=== PATIENT | female | born 1930 | race Caucasian/White ===

== ENCOUNTER 2018-11-12 18:11 | Inpatient (IN) ==
[2018-11-12] MEDS ORDERED: Naloxone 0.4 MG/ML INJ IVP PRN (23:37)
[2018-11-12] MEDS ORDERED: 0.9 % Sodium Chloride 1,000 ML IVC SCH (23:45)
--- NOTE | 2018-11-13 00:07 | Internal Med History&Physical ---
Date of Encounter: 11/13/18 Time of Encounter: 22:15 Internal Medicine - H&P: HPI Chief complaint: Fall Admitted From: Hospital to Hospital Transfer Plans for Post Hospital Care: Home History of present illness: Ms. De Souza is a 88 year old female with past medical history significant for paroxysmal a fib, hypertension, hyperlipidemia, diverticulosis, chronic kidney diease, breast and skin cancer in remission who presents as hospital transfer from [facility] following mechanical fall while carrying groceries on outdoor steps (total of 3 stairs) at home taking her around twenty minutes to crawl inside to phone to call for help. Denies striking head or loss of consciousness. Complains of 6/10 pain to right lower extremity radiating around right hip into lower back and rib pain upon deep breathing. She is able to move right lower extremity but has been unable to bear weight on it since fall. Pain is improved with medication and exacerbated with movement. No headache, chest pain, shortness of breath, bowel or bladder changes. Sending facility obtained xray of right hip, CT of head, cervical spine, chest, abdomen/pelvis with possible subcapital right femoral neck fracture on xray needing MRI for further evaluation and anterior superior right sacrum fracture. CT of abdomen/pelvis also reported diverticulosis which is known and chronic for patient, no current symptoms of diverticulitis with normal bowel movement yesterday. Sending facility gave Climax which improved pain and fentanyl which made patient not like how it made her feel. Has history of paroxysmal a fib but has never taken any type of anticoagulation besides aspirin. Sending facility EKG reported as a fib. Patient remains very functional but lives alone at home and will likely need assistance/rehab on discharge. Past Med Surg Social Fam HX - Past Medical History Medical history: atrial fibrillation, cancer, hyperlipidemia, hypertension, renal disease, other Additional medical history: Breast CA with lumpectomy/radiation, melanoma, diverticulosis Psychiatric history: no psych history - Past Surgical History Surgical History: appendectomy, cancer surgery, cholecystectomy, hysterectomy Additional surgical history: achilles tendon operation, right side lumpectomy - Social History Smoking Status: Never smoker Smokeless Tobacco Status: No Alcohol use: none Drug use: none Internal Medicine - H&P: Meds RX: Aspirin 81 mg PO DAILY 09/22/15 [History] RX: Dronendrone [Multaq] 400 mg PO BID 09/22/15 [History] RX: Simvastatin [Zocor] 10 mg PO DAILY 09/22/15 [History] RX: Cholecalciferol (D-3) [Vitamin D] 1,000 unit PO DAILY 10/23/17 [History] RX: Magnesium Citrate [Citroma] 296 ml PO PRN PRN 10/23/17 [History] RX: Metoprolol XL (24 HR) Succ [Toprol Xl] 25 mg PO DAILY #30 tab.er.24h 10/25/17 [Rx] Allergy/AdvReac Type Severity Reaction Status Date / Time chlorpheniramine Allergy Hives Verified 06/14/16 13:20 diphenhydramine AdvReac Itching Verified 10/31/18 15:58 All Systems PM: A 10-system review of systems was performed and is negative for pertinent findings except as documented above in the HPI. - Constitutional Vitals: Temp Pulse Resp BP Pulse Ox 97.9 F 66 17 114/62 92 11/12/18 23:38 11/12/18 23:38 11/12/18 23:38 11/12/18 23:38 11/12/18 23:38 Exam: General: Alert and oriented. Skin:Normal color, no rash. Brusing noted to right side of head and right elbow. HEENT:Pupils equal, round and reactive. Cardiovascular:No rubs, murmurs or gallops. No JVD. Pulse irregular. Lungs:Normal breath sounds, no wheezes or crackles. Rib pain with deep breathing. Abdomen:Soft, non-tender, no rigidity. Extremities:No deformity, no edema, no joint swelling or clubbing. Tenderness to right lower extremity. Neurological:Normal cognition and motor skills. Pulses:Carotid and radial pulses normal +2. Rest of the physical exam is non contributory. - Assessment and plan (1) Fracture of femoral neck, right Current Visit: Yes Status: Acute Assessment and plan: Surgery consult ordered, will call in a.m. MRI ordered. NPO at midnight. Will need PT after seeing ortho. fiscal services director consulted for discharge arrangements. Pain control with PRN pain medications. Qualifiers: Encounter type: initial encounter Fracture type: closed Qualified Code(s): S72.001A - Fracture of unspecified part of neck of right femur, initial encounter for closed fracture (2) Fracture of sacrum Current Visit: Yes Status: Acute Assessment and plan: Plan as above. Qualifiers: Encounter type: initial encounter Zone of sacrum fracture: unspecified portion of sacrum Fracture type: closed Qualified Code(s): S32.10XA - Unspecified fracture of sacrum, initial encounter for closed fracture (3) Fall Current Visit: Yes Status: Acute Assessment and plan: Plan as above. Qualifiers: Encounter type: initial encounter Qualified Code(s): W19.XXXA - Unspecified fall, initial encounter (4) Chronic kidney disease Current Visit: Yes Status: Chronic Assessment and plan: Currently at baseline. Monitor renal function closely. Repeat labs in a.m. Qualifiers: Chronic kidney disease stage: unspecified stage Qualified Code(s): N18.9 - Chronic kidney disease, unspecified (5) Hypertension Current Visit: Yes Status: Chronic Assessment and plan: Continue home medications once verified. Qualifiers: Hypertension type: unspecified Qualified Code(s): I10 - Essential (primary) hypertension (6) Atrial fibrillation Current Visit: Yes Status: Chronic Assessment and plan: Continue home medications once verified. Qualifiers: Atrial fibrillation type: chronic Qualified Code(s): I48.2 - Chronic atrial fibrillation - Time Spent With Patient Total time spent is greater than 50% in coordination of care (as documented) at patient's floor/unit and/or counseling patient:
[2018-11-13] MEDS: *HR* HYDROcodone/Acet 5/325 mg TABLET PO PRN ×2 (00:32→08:08)
[2018-11-13] MEDS ORDERED: Acetaminophen IV 500 MG/50 ML INFUS..BTL IVPB ONE (03:57)
[2018-11-13 08:02] LABS: Basophils % 0.6 %; Eosinophils # 0.2 K/mcL (0.0-0.6); Eosinophils % 4.5 %; Hematocrit 34.7 % (35.3-44.9); Hemoglobin 11.5 g/dL (11.5-15.4); Immature Granulocytes % 0.4 % (0-4); Lymphocytes # 1.3 K/mcL (0.6-4.6); Lymphocytes % 26.8 %; Mean Corpuscular HGB Conc 33.1 g/dL (31.6-35.5); Mean Corpuscular Hemoglobin 32.5 pg (28.0-33.3); Mean Platelet Volume 9.2 fL (9.4-12.4); Monocytes # 0.5 K/mcL (0.0-1.3); Monocytes % 9.8 %; Neutrophils # 2.8 K/mcL (1.6-8.9); Platelet Count 119 K/mcL (140-400); Red Blood Count 3.54 M/mcL (3.82-4.97); Segmented Neutrophils % 57.9 %
[2018-11-13 08:19] LABS: BUN/Creatinine Ratio 21 (6-26); Blood Urea Nitrogen 19 mg/dL (8-23); Calcium 8.5 mg/dL (8.6-10.3); Carbon Dioxide 22 mEq/L (23-29); Chloride 108 mEq/L (98-107); Glucose 128 mg/dL (70-105); Osmolality,Calculated 284 (280-300); Potassium 4.2 mEq/L (3.5-5.1); Sodium 135 mEq/L (136-145); eGFR For Non-African Americans 58 (> 60)
[2018-11-13] MEDS ORDERED: Metoprolol XL (24 HR) Succ 25 MG TAB.ER.24H PO SCH (10:45)
[2018-11-13] MEDS ORDERED: *HR* FentaNYL (PF) 100 MCG/2 ML VIAL ONE ×2 (12:33→14:27)
[2018-11-13] MEDS ORDERED: Dexamethasone 4 MG/ML VIAL ONE (12:33)
[2018-11-13] MEDS ORDERED: Ondansetron 4 MG/2 ML VIAL ONE (12:33)
[2018-11-13] MEDS ORDERED: Lidocaine -MPF 2% 2 ML VIAL ONE (12:33)
[2018-11-13] MEDS ORDERED: *HR* Propofol 200 MG/20 ML VIAL IVP ONE (12:33)
--- NOTE | 2018-11-13 12:34 | Anesthesia Evaluation PreOp ---
Date of Encounter: 11/13/18 Time of Encounter: 13:33 - Past History Planned Operation: Right Hip Pinning Cardiac History: HTN, Hyperlipidemia, Arrhythmia (paroxysmal A-Fib) Pulmonary History: Denies Any Significant HX CARDIAC CATH LAB MANAGER History: Denies Any Significant HX Other Medical History: Renal (CKD), Other (H/O breast CA S/P lumpectomy/XRT) Anesthesia History: No Prior Anesthetic Complications, Past Anesthesia Alcohol Use: none Drug use: none Medications and Allergies Aspirin 81 mg PO DAILY 09/22/15 [History] Dronendrone [Multaq] 400 mg PO BID 09/22/15 [History] Simvastatin [Zocor] 10 mg PO DAILY 09/22/15 [History] Cholecalciferol (D-3) [Vitamin D] 1,000 unit PO DAILY 10/23/17 [History] Magnesium Citrate [Citroma] 296 ml PO PRN PRN 10/23/17 [History] Metoprolol XL (24 HR) Succ [Toprol Xl] 25 mg PO DAILY #30 tab.er.24h 10/25/17 [Rx] Allergy/AdvReac Type Severity Reaction Status Date / Time chlorpheniramine Allergy Hives Verified 06/14/16 13:20 diphenhydramine AdvReac Itching Verified 10/31/18 15:58 - Meds/Allergy Pre-op Review Medications Reviewed: Yes Allergies Reviewed: Yes Beta Blockers on Current Med List: Yes If Beta Blockers taken, Date/Time (Last Dose taken): 11/13/2018 at 1109 Anesthesia Results - Labs 11/13/18 07:14 11/13/18 07:14 - Imaging EKG: report reviewed (10/31/2018 Atrial fibrillation with rapid ventricular response Baseline wander in lead(s) V1) Anesthesia Exam Vital Signs/O2 Sat, Most Current Temp Pulse Resp BP Pulse Ox 98.5 F 62 14 127/69 92 11/13/18 10:22 11/13/18 10:22 11/13/18 10:22 11/13/18 10:22 11/13/18 10:22 Height: 5'3''/1.6m Weight: 131 lbs/59.8 kg NPO (# of Hours): 8 Pain Scale: 0 (at rest) Pain Scale Used: Numeric (1 - 10) - HEENT Pupil (Motor): EOMI Mallampati: III Teeth: Normal Oral Opening: Greater than 3 - CARDIAC CATH LAB MANAGER LOC: Oriented CARDIAC CATH LAB MANAGER Motor: Normal RUE, Normal LUE, Normal RLE, Normal LLE, Normal Face CARDIAC CATH LAB MANAGER Sensory: Normal: RUE, LUE, RLE, LLE, Face - Cardiac Rhythm: Irregular Murmur: None - Pulmonary Breath Sounds: bilateral Clear Respiratory Effort: Symmetrical Anesthesia Assess/Plan ASA Score: 3 Level of consciousness: Cooperative, Oriented, Tranquil Anesthetic Plan: General Monitoring Plan: Standard Monitors Recovery Plan: PACU
--- NOTE | 2018-11-13 12:39 | Orthopedic Consult Note ---
Date of Encounter: 11/13/18 Time of Encounter: 11:45 Assessment and Plan (1) Fracture of femoral neck, right Current Visit: Yes Status: Acute Right femoral neck fracture will require surgical intervention as discussed with Dr. Nielsen. Plan for right hip pinning today by Dr. Nielsen. I reviewed the procedure as well as the r/b/a with her and family and she expressed understanding. All questions were answered and consent was obtained and placed in chart. Continue NPO until surgery. NWB. Pain control per primary team. Will follow up with Kelsi Olguin PA-C in [facility] office on 11/27/17 at 1:30pm. Qualifiers: Encounter type: initial encounter Fracture type: closed Qualified Code(s ): S72.001A - Fracture of unspecified part of neck of right femur, initial encounter for closed fracture History of Present Illness Chief complaint: right hip pain HPI: Ms. De Souza is a 88 year old female who presented to the ER with right hip pain after a fall yesterday around 12:00. She slipped on the stairs going into her house while carrying groceries and fell down 3-5 stairs landing on her right side. She had instant pain in right hip and unable to bear weight to RLE. She proceeded to crawl inside to call for help. Pain currently well controlled with medication. Denies any numbness or tingling. She denies loss of consciousness but does have a bruise to right eyebrow and right elbow likely from crawling for help. No pain to these but states she does have some sternal soreness. Denies any chest pain, SOB, fevers. Normally she ambulates very well without assistance and lives at home alone. Past Med Surg Social Fam HX - Past Medical History Medical history: atrial fibrillation, cancer, hyperlipidemia, hypertension, renal disease, other Additional medical history: Breast CA with lumpectomy/radiation, melanoma, diverticulosis Psychiatric history: no psych history - Past Surgical History Surgical History: appendectomy, cancer surgery, cholecystectomy, hysterectomy Additional surgical history: achilles tendon operation, right side lumpectomy - Social History Smoking Status: Never smoker Smokeless Tobacco Status: No Alcohol use: none Drug use: none Medications and Allergies Aspirin 81 mg PO DAILY 09/22/15 [History] Dronendrone [Multaq] 400 mg PO BID 11/09/15 [History] Simvastatin [Zocor] 10 mg PO DAILY 09/22/15 [History] Cholecalciferol (D-3) [Vitamin D] 1,000 unit PO DAILY 10/23/17 [History] Magnesium Citrate [Citroma] 296 ml PO PRN PRN 10/23/17 [History] Metoprolol XL (24 HR) Succ [Toprol Xl] 25 mg PO DAILY #30 tab.er.24h 10/25/17 [Rx] Allergy/AdvReac Type Severity Reaction Status Date / Time chlorpheniramine Allergy Hives Verified 06/14/16 13:20 diphenhydramine AdvReac Itching Verified 10/31/18 15:58 All Systems Reviewed: The remainder of the systems were reviewed and are negative - Constitutional Constitutional: as per HPI - Cardiovascular Cardiovascular: as per HPI - Respiratory Respiratory: as per HPI - Musculoskeletal Musculoskeletal: as per HPI Physical Exam - Constitutional Vitals: Temp Pulse Resp BP Pulse Ox 98.5 F 62 14 127/69 92 11/13/18 10:22 11/13/18 10:22 11/13/18 10:22 11/13/18 10:22 11/13/18 10:22 - Elbow right Location of pain elbow: no pain (Moderate acchymosis noted to right elbow, no tenderness to palpation of elbow, full ROM. NV intact distally) - Hip right Tenderness with palpation: none (No ecchymosis, erythema or open wounds noted to the right hip, no tenderness to palpation of the right hip. ROM restricted secondary to known fracture. good dorsiflexion of foot, sensation intact distally. no calf tenderness to palpation.) Results - Labs Result Diagrams: 11/13/18 07:14 11/13/18 07:14 Labs: Abnormal lab results RBC 3.54 M/mcL (3.82-4.97) L 11/13/18 07:14 Hct 34.7 % (35.3-44.9) L 11/13/18 07:14 Plt Count 119 K/mcL (140-400) L 11/13/18 07:14 MPV 9.2 fL (9.4-12.4) L 11/13/18 07:14 Sodium 135 mEq/L (136-145) L 11/13/18 07:14 Chloride 108 mEq/L (98-107) H 11/13/18 07:14 Carbon Dioxide 22 mEq/L (23-29) L 11/13/18 07:14 Est GFR (Non-Af Amer) 58 (> 60) L 11/13/18 07:14 Glucose 128 mg/dL (70-105) H 11/13/18 07:14 Calcium 8.5 mg/dL (8.6-10.3) L 11/13/18 07:14 H & H 11/13/18 Range/Units 07:14 Hgb 11.5 D (11.5-15.4) g/dL Hct 34.7 L (35.3-44.9) % All other labs normal. - Diagnostic results Hip x-ray: report reviewed, image reviewed Consult Discharge Plan - Plan Referrals: Shan Tyler DO [Primary Care Provider] - - Attending Attestation Case and plan of care discussed with supervising physician who was available for all aspects of care.
--- NOTE | 2018-11-13 13:27 | Internal Med Progress Note ---
Hospitalist Progress Note - Encounter Date of Encounter: 11/13/18 Time of Encounter: 13:25 - Subjective Interval History: Patient says that her pain is well controlled. She denies any new chest pain, shortness of breath, palpitations.. - Exam Vitals: Temp Pulse Resp BP Pulse Ox 98.5 F 62 14 127/69 92 11/13/18 10:22 11/13/18 10:22 11/13/18 10:22 11/13/18 10:22 11/13/18 10:22 Exam: Cardiovascular:No rubs, murmurs or gallops. No JVD. Pulse irregular. Lungs:Normal breath sounds, no wheezes or crackles. Rib pain with deep breathing. Abdomen:Soft, non-tender, no rigidity. Extremities: Tenderness to palpation over the right greater trochanter. Neurological:Normal cognition and motor skills. Gait not assessed due to obvious reasons Pulses:Carotid and radial pulses normal +2. Rest of the physical exam is non contributory. - Assessment and Plan (1) Fracture of femoral neck, right Current Visit: Yes Status: Acute Assessment and Plan: Surgery consult ordered, will call in a.m. MRI ordered. NPO at midnight. Will need PT after seeing ortho. deputy sheriff court services consulted for discharge arrangements. Pain control with PRN pain medications. 11/13-orthopedic surgery consult appreciated. Patient to be taken for surgery for pinning. Anesthesia evaluation has already been completed. Surgery later on today. Pain control is appropriate. Patient will get metoprolol plaque to the surgery. She is already on baby aspirin and not on a blood thinner for her atrial fibrillation. She is an acceptable risk for her orthopedic surgery from a cardiac standpoint (2) Fracture of sacrum Current Visit: Yes Status: Acute Assessment and Plan: Management as per orthopedics. Most likely nonoperative with pain control (3) Fall Current Visit: Yes Status: Acute Assessment and Plan: Plan as above. Will need placement postoperatively (4) Chronic kidney disease Current Visit: Yes Status: Chronic Assessment and Plan: Currently at baseline. Monitor renal function closely. We will check BNP tomorrow (5) Hypertension Current Visit: Yes Status: Chronic Assessment and Plan: Stable. Continue to monitor (6) Atrial fibrillation Current Visit: Yes Status: Chronic Assessment and Plan: Rate controlled. Continue beta blockers perioperatively. Continue aspirin baby. DVT Prophylaxis: SCD - Time Spent with Patient Total time spent is greater than 50% in coordination of care (as documented) at patient's floor/unit and/or counseling patient: 25 - 35 minutes Plan of Care Discussed with: family Internal Medicine: Result - Labs CBC & Chem 7: 11/13/18 07:14 11/13/18 07:14 Labs: Short CBC 11/13/18 Range/Units 07:14 WBC 4.9 (4.3-11.1) K/mcL Hgb 11.5 D (11.5-15.4) g/dL Hct 34.7 L (35.3-44.9) % Plt Count 119 L (140-400) K/mcL Neutrophils # 2.8 (1.6-8.9) K/mcL BMP 11/13/18 07:14 Sodium 135 L Potassium 4.2 Chloride 108 H Carbon Dioxide 22 L BUN 19 Creatinine 0.92 Glucose 128 H Calcium 8.5 L Consult Discharge Plan - Plan Referrals: Shan Tyler DO [Primary Care Provider] - (1) Fracture of femoral neck, right Qualifiers: Encounter type: initial encounter Fracture type: closed Qualified Code(s): S72.001A - Fracture of unspecified part of neck of right femur, initial encounter for closed fracture (2) Fracture of sacrum Qualifiers: Encounter type: initial encounter Zone of sacrum fracture: unspecified portion of sacrum Fracture type: closed Qualified Code(s): S32.10XA - Unspecified fracture of sacrum, initial encounter for closed fracture (3) Fall Qualifiers: Encounter type: initial encounter Qualified Code(s): W19.XXXA - Unspecified fall, initial encounter (4) Chronic kidney disease Qualifiers: Chronic kidney disease stage: unspecified stage Qualified Code(s): N18.9 - Chronic kidney disease, unspecified (5) Hypertension Qualifiers: Hypertension type: unspecified Qualified Code(s): I10 - Essential (primary) h ypertension (6) Atrial fibrillation Qualifiers: Atrial fibrillation type: chronic Qualified Code(s): I48.2 - Chronic atrial fibrillation
[2018-11-13] MEDS ORDERED: ceFAZolin 2,000 MG in Water for inj. (sterile) 20 ML 20 ML IVP ONE (13:51)
[2018-11-13] MEDS ORDERED: EPHEDrine 50 MG/ML VIAL ONE (14:03)
[2018-11-13] MEDS ORDERED: *HR* Morphine 2 MG/ML SYRINGE IVP PRN (14:40)
--- NOTE | 2018-11-13 15:24 | Operative Note ---
Date of procedure: 11/13/18 Pre-op diagnosis: Right hip nondisplaced femoral neck fracture Post-op diagnosis: same Procedure: Right hip femoral neck fracture pinning Implants: [place] 6.5 mm cannulated Asnis screws Anesthesia: GETA Surgeon: Gianfranco Nielsen Was there an telecom assistant present: No Estimated blood loss (cc): 10 Specimen: 0 Condition: stable Disposition: PACU Procedure in Detail: The patient received IV antibiotics in the holding area, she was brought to the operating room, a sign in was performed, and she underwent general anesthesia on the hospital bed. The patient was then transferred to the OR fracture table in supine position. The patient was positioned against the groin post, with traction applied to the right lower extremity. The contralateral lower extremity was then placed onto a well-padded leg barton keeping her hip flexed and abducted. Once the patient was well positioned, the x-ray C-arm was brought in and fluoroscopy shots of the hip were taken, adjusting the lower extremity, making sure we will get a good AP and lateral views. Live fluoroscopy was also checked with the hip show it was stable in the valgus impacted position. The right hip and thigh down to the knee was then prepped and draped in standard technique. A timeout was performed. The guidewire was placed over the hip and it's position was checked under fluoroscopy. The guidewires in place percutaneously through skin and driven from the lateral cortex paralleling the inferior neck and staying central on the AP plane. This was driven up to the head, its position checked on AP and lateral views. A 3 cm longitudinal incisions then made going superior to the guidewire. The depth was measured, next I overdrilled the guidewire and placed the appropriate length screw with short threads. Another guidewire was then placed superior,steps were repeated to place another screw. The initial screw was changed out as it appeared too close to the articular surface of the head. The screw started sinking into the cortex. It was removed and replaced with a long threaded screw with a washer. Final AP and lateral shots were taken and saved, showing good screw placement. The wound was irrigated normal saline, the subcutaneous tissues closed with 2-0 Vicryl sutures, and skin stapled. Sterile dressings were applied. The patient was then transferred to hospital bed where she was extubated and taken to the recovery room in stable condition.
--- NOTE | 2018-11-13 15:29 | Anesthesia Evaluation Post Op ---
Date of Encounter: 11/13/18 Time of Encounter: 15:28 - Vital Signs Vital Signs: Vital Signs/O2 Sat, Most Current Temp Pulse Resp BP Pulse Ox 98.2 F 69 16 178/75 94 11/13/18 15:18 11/13/18 15:18 11/13/18 15:18 11/13/18 15:18 11/13/18 15:18 - Lungs Lungs: Clear Ascult./Percussion - Airway Airway: Non-obstructed - Cardiovascular Regular Rate - Mental Status Mental Status: Alert & Oriented, Answers Appropriately - Pain Pain Scale used: Numeric (1 - 10) (tolerable) - Nausea Vomiting Nausea Vomiting: Not Present - Hydration Hydration: Ice chips - Discharge PostOp Status: Transfer Patient to floor
[2018-11-13] MEDS ORDERED: *HR* HYDROcodone/Acet 5/325 mg TABLET PO PRN (16:03)
[2018-11-13] MEDS ORDERED: Ringers Solution, Lactated 1,000 ML IVC SCH (16:03)
[2018-11-13] MEDS ORDERED: Naloxone 0.4 MG/ML INJ IVP PRN (16:03)
[2018-11-13] MEDS ORDERED: Acetaminophen 325 MG TABLET PO PRN (16:03)
[2018-11-13 17:18] LABS: BUN/Creatinine Ratio 15 (6-26); Blood Urea Nitrogen 14 mg/dL (8-23); Calcium 8.7 mg/dL (8.6-10.3); Carbon Dioxide 21 mEq/L (23-29); Chloride 105 mEq/L (98-107); Glucose 164 mg/dL (70-105); Osmolality,Calculated 284 (280-300); Potassium 4.1 mEq/L (3.5-5.1); Sodium 135 mEq/L (136-145); eGFR For Non-African Americans 58 (> 60)
[2018-11-14 07:11] LABS: Hematocrit 33.4 % (35.3-44.9); Hemoglobin 11.4 g/dL (11.5-15.4)
[2018-11-14] MEDS: Metoprolol XL (24 HR) Succ 25 MG TAB.ER.24H PO SCH (08:45)
[2018-11-14] MEDS: Cholecalciferol (D-3) 1,000 UNIT TABLET PO SCH (08:45)
[2018-11-14] MEDS: Aspirin 81 MG TAB.CHEW PO SCH (08:45)
[2018-11-14] MEDS: *HR* Enoxaparin 30 MG/0.3 ML SYRINGE SQ SCH ×2 (10:52→19:57)
--- NOTE | 2018-11-14 12:41 | Internal Med Progress Note ---
Hospitalist Progress Note - Encounter Date of Encounter: 11/14/18 Time of Encounter: 12:39 - Subjective Interval History: Patient is doing better today postoperatively. She is still sore on the right side but that is expected after her surgery. The nursing staff she was a little bit confused early in the morning but at the time my examination she is a and O 3 - Exam Vitals: Temp Pulse Resp BP Pulse Ox 97.7 F 66 18 148/73 94 11/14/18 11:03 11/14/18 11:03 11/14/18 11:03 11/14/18 11:03 11/14/18 11:03 Exam: Cardiovascular:No rubs, murmurs or gallops. No JVD. Pulse irregular. Lungs:Normal breath sounds, no wheezes or crackles. Rib pain with deep br eathing. Abdomen:Soft, non-tender, no rigidity. Extremities: Postoperative bandage in place on the right lower extremity Neurological:Normal cognition and motor skills. Gait not assessed due to obvio us reasons Pulses:Carotid and radial pulses normal +2. Rest of the physical exam is non contributory. - Assessment and Plan (1) Fracture of femoral neck, right Current Visit: Yes Status: Acute Assessment and Plan: Surgery consult ordered, will call in a.m. MRI ordered. NPO at midnight. Will need PT after seeing ortho. application services manager consulted for discharge arrangements. Pain control with PRN pain medications. 11/13-orthopedic surgery consult appreciated. Patient to be taken for surgery for pinning. Anesthesia evaluation has already been completed. Surgery later on today. Pain control is appropriate. Patient will get metoprolol plaque to the surgery. She is already on baby aspirin and not on a blood thinner for her atrial fibrillation. She is an acceptable risk for her orthopedic surgery from a cardiac standpoint 11/14/18-status post pinning on the right femoral neck postop day #1. Tolerating pain well. Further planning on postoperative care as per orthopedic surgery. Eventually would need placement to rehabilitation (2) Fracture of sacrum Current Visit: Yes Status: Acute Assessment and Plan: Pain control. On the very management (3) Fall Current Visit: Yes Status: Acute (4) Chronic kidney disease Current Visit: Yes Status: Chronic Assessment and Plan: Currently at baseline. Monitor renal function closely. Check serial Bmp (5) Hypertension Current Visit: Yes Status: Chronic (6) Atrial fibrillation Current Visit: Yes Status: Chronic Assessment and Plan: Rate controlled. Continue beta blockers perioperatively. Continue baby aspirin DVT Prophylaxis: SCD - Time Spent with Patient Total time spent is greater than 50% in coordination of care (as documented) at patient's floor/unit and/or counseling patient: 25 - 35 minutes Plan of Care Discussed with: family Internal Medicine: Result - Labs CBC & Chem 7: 11/14/18 06:19 11/13/18 16:03 Labs: Short CBC 11/14/18 Range/Units 06:19 Hgb 11.4 L (11.5-15.4) g/dL Hct 33.4 L (35.3-44.9) % BMP 11/13/18 16:03 Sodium 135 L Potassium 4.1 Chloride 105 Carbon Dioxide 21 L BUN 14 Creatinine 0.92 Glucose 164 H Calcium 8.7 - Impressions Impressions Fluoroscopy 11/13/18 14:15 IMPRESSION: Fluoroscopic imaging obtained intraoperatively for right hip pinning. Please see performing physician note for full detail. D/ / 11/13/2018 15:24:10 Rajinder Rollins MD / [facility] Interpreting Provider: Rajinder Rollins MD Hip X-Ray 11/13/18 14:15 IMPRESSION: Fluoroscopic imaging obtained intraoperatively for right hip pinning. Please see performing physician note for full detail. D/ / 11/13/2018 15:24:10 Rajinder Rollins MD / dayana Interpreting Provider: Rajinder Rollins MD Consult Discharge Plan - Plan Referrals: Shan Tyler DO [Primary Care Provider] - (1) Fracture of femoral neck, right Qualifiers: Encounter type: initial encounter Fracture type: closed Qualified Code(s): S72.001A - Fracture of unspecified part of neck of right femur, initial encounter for closed fracture (2) Fracture of sacrum Qualifiers: Encounter type: initial encounter Zone of sacrum fracture: unspecified portion of sacrum Fracture type: closed Qualified Code(s): S32.10XA - Unspecified fracture of sacrum, initial encounter for closed fracture (3) Fall Qualifiers: Encounter type: initial encounter Qualified Code(s): W19.XXXA - Unspecified fall, initial encounter (4) Chronic kidney disease Qualifiers: Chronic kidney disease stage: unspecified stage Qualified Code(s): N18.9 - Chronic kidney disease, unspecified (5) Hypertension Qualifiers: Hypertension type: unspecified Qualified Code(s): I10 - Essential (primary) hypertension (6) Atrial fibrillation Qualifiers: Atrial fibrillation type: chronic Qualified Code(s): I48.2 - Chronic atrial fibrillation
[2018-11-14 12:59] LABS: BUN/Creatinine Ratio 16 (6-26); Blood Urea Nitrogen 13 mg/dL (8-23); Calcium 9.2 mg/dL (8.6-10.3); Carbon Dioxide 23 mEq/L (23-29); Chloride 106 mEq/L (98-107); Glucose 144 mg/dL (70-105); Osmolality,Calculated 291 (280-300); Potassium 4.2 mEq/L (3.5-5.1); Sodium 139 mEq/L (136-145); eGFR For Non-African Americans > 60 (> 60)
--- NOTE | 2018-11-14 14:27 | Orthopedics Progress Note ---
Date of Encounter: 11/14/18 Time of Encounter: 14:24 Subjective Principal diagnosis: L hip pinning, L sided sacral fx Interval history: Patient states she is feeling better today this last some pain Left hip: Dressings clean dry and intact, minimal tenderness at incision site. Patient has very mild anterior groin tenderness, which is improved. Very mild pain with hip range of motion. She does have significant tenderness posteriorly in the left medial buttock region. Bilateral calves are soft and nontender. Neurovascular intact distally. Assessment postoperative #1, stable Plan: I discussed with the patient that the posterior part pain will be there for some time but the fracture is stable and she can bear weight on that. The hip fracture is also stable and she can start therapy with partial weightbearing tomorrow. We discussed that analgesics may be used to control the sacral fracture pain. Continue DVT prophylaxis OT/PT evaluations are pending Objective Vital signs: Vital Signs Temp Pulse Resp BP Pulse Ox 11/14/18 11:03 97.7 F 66 18 148/73 94 11/14/18 08:44 72 179/75 91 11/14/18 06:32 98.2 F 67 18 171/75 11/14/18 04:20 97.5 F L 62 14 147/76 93 11/13/18 23:06 97.9 F 65 15 131/73 94 11/13/18 21:00 94 11/13/18 19:07 97.0 F L 64 14 143/68 94 11/13/18 19:02 97.7 F 66 14 127/66 93 11/13/18 18:02 66 15 158/61 95 11/13/18 17:02 97.3 F L 63 14 154/71 94 11/13/18 16:32 62 14 172/71 93 11/13/18 16:02 97.5 F L 66 14 167/75 92 11/13/18 15:38 98.2 F 62 16 171/71 94 11/13/18 15:28 98.2 F 64 16 167/65 94 11/13/18 15:18 98.2 F 69 16 178/75 94 11/13/18 15:08 97.6 F 73 16 167/73 92 Intake and Output 11/13/18 11/14/18 11/14/18 23:59 07:59 15:59 Intake Total 750 / 750 100 / 100 240 / 240 Output Total 500 / 500 500 / 500 Balance 250 / 250 -400 / -400 240 / 240 Intake: IV Fluids 750 / 750 100 / 100 0.9 % Sodium Chloride 1,000 ML 650 / 650 @ 50 mls/hr IVC .Q20H [facility] Rx#: [id number] Ancef 2,000 MG In 0.9 % Sodium 100 / 100 100 / 100 Chloride 100 ML @ 200 mls/hr IVPB Q8H [facility] Rx#:[id number] Oral 240 / 240 Output: Urine 500 / 500 500 / 500 Other: Meal Lunch Percent of Meal Consumed 75% # Voids 1 1 1 Weight 60.1 kg Patient Weight 11/14/18 23:59 Weight 60.1 kg - Labs CBC & BMP: 11/14/18 06:19 11/14/18 06:19 Labs: Abnormal lab results RBC 3.54 M/mcL (3.82-4.97) L 11/13/18 07:14 Hgb 11.4 g/dL (11.5-15.4) L 11/14/18 06:19 Hct 33.4 % (35.3-44.9) L 11/14/18 06:19 Plt Count 119 K/mcL (140-400) L 11/13/18 07:14 MPV 9.2 fL (9.4-12.4) L 11/13/18 07:14 Glucose 144 mg/dL (70-105) H 11/14/18 06:19 POC Glucose 115 mg/dL (70-99) H 11/13/18 08:10 Consult Discharge Plan - Plan Referrals: Shan Tyler DO [Primary Care Provider] -
[2018-11-14] MEDS ORDERED: *HR* Enoxaparin 30 MG/0.3 ML SYRINGE SQ SCH (15:16)
[2018-11-15] MEDS ORDERED: diazePAM 10 MG/2 ML SYRINGE IVP ONE (03:35)
[2018-11-15] MEDS: *HR* Enoxaparin 30 MG/0.3 ML SYRINGE SQ SCH ×2 (05:34→18:19)
[2018-11-15] MEDS: Metoprolol XL (24 HR) Succ 25 MG TAB.ER.24H PO SCH (08:18)
[2018-11-15] MEDS: Cholecalciferol (D-3) 1,000 UNIT TABLET PO SCH (08:19)
[2018-11-15] MEDS: Aspirin 81 MG TAB.CHEW PO SCH (08:19)
[2018-11-15 08:30] LABS: BUN/Creatinine Ratio 27 (6-26); Blood Urea Nitrogen 24 mg/dL (8-23); Calcium 9.1 mg/dL (8.6-10.3); Carbon Dioxide 24 mEq/L (23-29); Chloride 105 mEq/L (98-107); Glucose 113 mg/dL (70-105); Osmolality,Calculated 289 (280-300); Potassium 3.8 mEq/L (3.5-5.1); Sodium 137 mEq/L (136-145); eGFR For Non-African Americans > 60 (> 60)
--- NOTE | 2018-11-15 08:57 | Internal Med Progress Note ---
<Anastacia Gautam P - Last Filed: 11/15/18 12:30> Hospitalist Progress Note - Encounter Date of Encounter: 11/15/18 Time of Encounter: 09:00 - Subjective Interval History: 88 years old female with past medical history of A. fib, hypertension, hyperlipidemia, chronic kidney disease, patient with breast & skin cancer in remission admitted in inpatient because of fall injury and fracture right hip. The orthopedic doctor was consulted and did pinning in her left hip on 11/14/2018. During my bedside visit today, she was lying comfortably on the bed, not in acute distress, has very minimal pain, patient's vitals where stable. She did not have any new complaints. She denied any calf swelling, fever, nausea and vomiting. - Exam Vitals: Temp Pulse Resp BP Pulse Ox 98.3 F 65 16 124/71 93 11/15/18 06:37 11/15/18 06:37 11/15/18 06:37 11/15/18 06:37 11/15/18 06:37 Exam: Genital exam : Patient was lying comfortably on the bed, not in acute distress, well oriented to time place and person, Cardiovascular:No rubs, murmurs or gallops. No JVD. Pulse irregular. Lungs:Normal breath sounds, no wheezes or crackles. Rib pain with deep britney athing. Abdomen:Soft, non-tender, no rigidity. Extremities: Postoperative bandage in place on the right lower extremity, no soakage, no bleeding , no sign of infection. Neurological:Normal cognition and motor skills. Gait not assessed due to obvious reasons Pulses:Carotid and radial pulses normal +2. Rest of the physical exam is non contributory. - Assessment and Plan (1) Fractured femoral neck Current Visit: Yes Status: Acute Assessment and Plan: The patient has history of fall and injury injury to right hip on 11/13 Orthopedic doctor did surgery( pinning of Right Hip ) on 11/13 Today is second postoperative day.The patient is improving gradually, no wound site infection, no fever , post op hemoglobin 11.4 and hematocrit 33.4.WBC count : WNL Partial weight bearing from Today. Ortho team has been following her (2) Hypertension Current Visit: Yes Status: Acute Assessment and Plan: The patient is a patient of essential hypertension under medication, we have resumed her home medication for high blood pressure, recent blood pressure is 111/71, 123/69, 124/71 ( 24 hours) : She is on metoprolol XL 25 MG po daily (3) Afib Current Visit: Yes Status: Acute Assessment and Plan: Rate has been controlled, she will continue her home medication: Aspirin and metoprolol (4) CKD (chronic kidney disease) stage 3, GFR 30-59 ml/min Current Visit: No Status: Chronic Assessment and Plan: Her old records shows chronic kidney disease stage III, now her GFR is more than 60 and BUN 24 creatinine 0.88, now it has come to baseline status. DVT Prophylaxis: On Lovenox 30 SQ 12hrly - Time Spent with Patient Total time spent is greater than 50% in coordination of care (as documented) at patient's floor/unit and/or counseling patient: Internal Medicine: Result - Labs CBC & Chem 7: 11/14/18 06:19 11/15/18 07:26 Labs: BMP 11/14/18 11/15/18 06:19 07:26 Sodium 139 137 Potassium 4.2 3.8 Chloride 106 105 Carbon Dioxide 23 24 BUN 13 24 H Creatinine 0.82 0.88 Glucose 144 H 113 H Calcium 9.2 9.1 Consult Discharge Plan - Plan Referrals: Shan Tyler DO [Primary Care Provider] - <Jayne Platt - Last Filed: 11/15/18 13:37> Hospitalist Progress Note - Encounter Date of Encounter: 11/15/18 - Exam Vitals: Temp Pulse Resp BP Pulse Ox 98.3 F 65 16 124/71 93 11/15/18 06:37 11/15/18 06:37 11/15/18 06:37 11/15/18 06:37 11/15/18 06:37 - Assessment and Plan (1) Fracture of femoral neck, right Current Visit: Yes Status: Acute (2) Fracture of sacrum Current Visit: Yes Status: Acute (3) Fall Current Visit: Yes Status: Acute (4) Chronic kidney disease Current Visit: Yes Status: Chronic (5) Hypertension Current Visit: Yes Status: Chronic (6) Atrial fibrillation Current Visit: Yes Status: Chronic - Time Spent with Patient Total time spent is greater than 50% in coordination of care (as documented) at patient's floor/unit and/or counseling patient: Internal Medicine: Result - Labs CBC & Chem 7: 01/01/19 06:19 11/15/18 07:26 Labs: BMP 11/15/18 07:26 Sodium 137 Potassium 3.8 Chloride 105 Carbon Dioxide 24 BUN 24 H Creatinine 0.88 Glucose 113 H Calcium 9.1 - Attending Attestation I have performed a face- to face examination of this patient and participated in formulation of lowe components of Assessment and plan with the Resident. Briefly this is an 88-year-old female who recently underwent a pinning surgery for her femoral neck fracture. She is doing well postoperatively. This morning she does complain of right shoulder pain and feels that her shoulder is "dislocated". She is able to move her shoulder barely on the right side. She does attribute this to her being carried from her shoulders with support as she performs physical therapy. She has otherwise been tolerating pain very well and fact has not been asking for even her scheduled when necessary pain medications. Her vital signs are stable and so are her labs. On examination of the shoulder I do not see an asymmetry between the left and right shoulders and the contours. I will order a x-ray Of the shoulder just to look for dislocation if any although I doubt it. I will continue pain control or at least offer it. She may be sore just from the effort of being pulled up during her physical therapy. Postoperative care being managed by orthopedics. PT OT currently following the patient. Rest of the assessment and plan as per resident documentation. <Jayne Platt - Last Filed: 11/15/18 13:37> (1) Fracture of femoral neck, right Qualifiers: Encounter type: initial encounter Fracture type: closed Qualified Code(s): S72.001A - Fracture of unspecified part of neck of right femur, initial encounter for closed fracture (2) Fracture of sacrum Qualifiers: Encounter type: initial encounter Zone of sacrum fracture: unspecified portion of sacrum Fracture type: closed Qualified Code(s): S32.10XA - Unspecified fracture of sacrum, initial encounter for closed fracture (3) Fall Qualifiers: Encounter type: initial encounter Qualified Code(s): W19.XXXA - Unspecified fall, initial encounter (4) Chronic kidney disease Qualifiers: Chronic kidney disease stage: unspecified stage Qualified Code(s): N18.9 - Chronic kidney disease, unspecified (5) Hypertension Qualifiers: Hypertension type: unspecified Qualified Code(s): I10 - Essential (primary) hypertension (6) Atrial fibrillation Qualifiers: Atrial fibrillation type: chronic Qualified Code(s): I48.2 - Chronic atrial fibrillation
--- NOTE | 2018-11-15 16:11 | Orthopedics Progress Note ---
Date of Encounter: 11/15/18 Time of Encounter: 15:45 - Assessment and Plan (1) Fracture of femoral neck, right Current Visit: Yes Status: Acute POD#2 - s/p right hip pinning 11/13/18 Continue with therapy, PWB status Continue ice to hip as needed. Continue DVT prophylaxis Plan: accepted to [facility] tomorrow Will follow up with Kelsi Olguin PA-C in [facility] office in 2 weeks. Qualifiers: Encounter type: initial encounter Fracture type: closed Qualified Code(s): S72.001A - Fracture of unspecified part of neck of right femur, initial encounter for closed fracture Subjective Principal diagnosis: L hip pinning, L sided sacral fx Interval history: Patient states she is doing pretty well today and pain in hip is a little better. She states tylenol is all she needed for pain control. She states therapy today was difficult. She admits to constipation since admission and states she is chronically on stool softeners. Family at bedside admits to some confusion/delirium since surgery. Denies any other concerns related to hip. Objective Vital signs: Vital Signs Temp Pulse Resp BP Pulse Ox 11/15/18 15:38 97.5 F L 11/15/18 15:34 98.0 F 107 16 140/63 93 11/15/18 06:37 98.3 F 65 16 124/71 93 11/15/18 02:35 97.8 F 68 20 123/69 93 11/15/18 00:23 98.3 F 93 18 111/71 93 11/14/18 20:00 97.9 F 73 18 125/71 93 Intake and Output 11/15/18 11/15/18 11/15/18 07:59 15:59 23:59 Intake Total 300 / 300 300 / 300 Output Total 0 / 0 Balance 300 / 300 300 / 300 Intake: Oral 300 / 300 300 / 300 Output: Urine 0 / 0 Other: Meal Lunch Percent of Meal Consumed 10% Stool Size Moderate Stool Consistency loose Stool Color Brown # Voids 1 # Urine Diapers 4 # Bowel Movements 1 Weight 60.1 kg Patient Weight 11/15/18 23:59 Weight 60.1 kg Incision: clean and dry (dressings to right hip are c/d/i with no visible drainage or erythema, no calf tenderness to palpation, good dorsiflexion of foot, sensation intact distally) - Labs CBC & BMP: 01/01/19 06:19 11/15/18 07:26 Labs: Abnormal lab results RBC 3.54 M/mcL (3.82-4.97) L 11/13/18 07:14 Hgb 11.4 g/dL (11.5-15.4) L 11/14/18 06:19 Hct 33.4 % (35.3-44.9) L 11/14/18 06:19 Plt Count 119 K/mcL (140-400) L 11/13/18 07:14 MPV 9.2 fL (9.4-12.4) L 11/13/18 07:14 BUN 24 mg/dL (8-23) H 11/15/18 07:26 BUN/Creatinine Ratio 27 (6-26) H 11/15/18 07:26 Glucose 113 mg/dL (70-105) H 11/15/18 07:26 POC Glucose 115 mg/dL (70-99) H 11/13/18 08:10 Consult Discharge Plan - Plan Referrals: Shan Tyler DO [Primary Care Provider] -
[2018-11-15] MEDS: *HR* OxyCODONE Immed Rel 5 MG TABLET PO PRN (22:26)
[2018-11-16] MEDS: *HR* Enoxaparin 30 MG/0.3 ML SYRINGE SQ SCH (05:52)
--- NOTE | 2018-11-16 07:14 | Discharge Summary ---
<Anastacia Gautam P - Last Filed: 11/16/18 11:07> - NOTES TO OUTPATIENT PROVIDER Notes to Outpatient Provider: * She will follow up with PCP with in a week. * Will follow up with Kelsi Olguin PA-C in [facility] office in 2 weeks. Date of Encounter: 11/16/18 Time of Encounter: 10:00 - Discharge Diagnosis (1) Fractured femoral neck Priority: Primary Status: Acute Qualifiers: Encounter type: initial encounter Fracture type: closed Laterality: right Qualified Code(s): S72.001A - Fracture of unspecified part of neck of right femur, initial encounter for closed fracture (2) Hypertension Priority: Secondary Status: Chronic Qualifiers: Hypertension type: essential hypertension Qualified Code(s): I10 - Essential (primary) hypertension (3) Afib Priority: Secondary Status: Chronic Qualifiers: Atrial fibrillation type: unspecified Qualified Code(s): I48.91 - Unspecified atrial fibrillation (4) CKD (chronic kidney disease) stage 3, GFR 30-59 ml/min Priority: Secondary Status: Chronic Hospital course: Ms. De Souza is a 88 year old female with past medical history of A. fib, hypertension, hyperlipidemia, chronic kidney disease, patient with breast & skin cancer in remission admitted in inpatient because of fall injury and fracture right hip. Xray Hip showed : fracture NOF right and no fracture seen in Right shoulder eventhough she has had impact on Right shoulder and Right Hip during fall. We admitted her for Orthopedic consultation and management .The orthopedic doctor was consulted and did Surgery /pinning in her Right hip on 11/14/2018. She is on partial weight bearing since yesterday and the wound is healthy and no sign of infection, no h/o fever, her latest hemoglobin is 13.4 and hematocrit 33.4 .She has been clinically improved and has only minimal pain on right hip and right shoulder. patient's vitals are stable. We are [facility] to [facility] and she already has been accepted. She will review with Orthopedic doctor in two weeks and PCP with in a week . She will continue taking pain medication Tab Mortin for shoulder and Hip pain and will do physical therapy for her shoulder pain. - Time Spent with Patient Total time spent providing and/or coordinating discharge services: - Discharge Medications Prescriptions: Ibuprofen [Motrin] 400 mg PO Q6HR #15 tablet Home Medications: RX: Aspirin 81 mg PO DAILY 09/22/15 [History] RX: Dronendrone [Multaq] 400 mg PO BID 09/22/15 [History] RX: Simvastatin [Zocor] 10 mg PO DAILY 09/22/15 [History] RX: Cholecalciferol (D-3) [Vitamin D] 1,000 unit PO DAILY 10/23/17 [History] RX: Metoprolol XL (24 HR) Succ [Toprol Xl] 25 mg PO DAILY #30 tab.er.24h 10/25/17 [Rx] Ibuprofen [Motrin] 400 mg PO Q6HR #15 tablet 11/16/18 [Rx] RX: Acetaminophen [Tylenol] 650 mg PO Q4HR PRN tablet 11/16/18 [Rx] RX: Calcium Carbonate [Tums] 1,000 mg PO TID tab.chew 11/16/18 [Rx] RX: Docusate [Colace] 100 mg PO BID capsule 11/16/18 [Rx] Allergies/Adverse Reactions: Allergy/AdvReac Type Severity Reaction Status Date / Time chlorpheniramine Allergy Hives Verified 06/14/16 13:20 diphenhydramine AdvReac Itching Verified 10/31/18 15:58 Date of admission: 11/13/18 14:32 Primary care physician: Shan Tyler DO Consults: 11/12/18 21:25 Consult to Social Worker Delinquency Prevention [CONS] Routine Reason for SW Consult: fall with possible SNF placement. 11/13/18 16:03 Consult to Occupational Therapy [CONS] Routine Comment: Evaluate, develop and implement POC Reason for Consult: post hip surgery Does patient have active BEDREST order?: No Is patient medically & hemodynamically stable?: Yes Patient assessed for mobility or mobilized this visit?: No Consult to Orthopedic Navigator [CONS] [CONS] Routine Consult to Physical Therapy [CONS] Routine Comment: Evaluate, develop and implement POC Reason for Consult: post hip surgery Does patient have active BEDREST order?: No Is patient medically & hemodynamically stable?: Yes Patient assessed for mobility or mobilized this visit?: No Consult to Social Worker Delinquency Prevention [CONS] Routine Reason for SW Consult: post -op hip fracture RT Post Op Consult [CONS] Routine - Constitutional Vitals: Temp Pulse Resp BP Pulse Ox 98.7 F 60 15 128/74 96 11/16/18 06:47 11/16/18 06:47 11/16/18 06:47 11/16/18 06:47 11/16/18 06:47 General appearance: Present: A&O X 3, no acute distress, answers questions appropriately Exam: Genital exam : Patient was lying comfortably on the bed, not in acute distress, well oriented to time place and person, Cardiovascular:No rubs, murmurs or gallops. No JVD. Pulse irregular. Lungs:Normal breath sounds, no wheezes or crackles. Rib pain with deep breathing. Abdomen:Soft, non-tender, no rigidity. Extremities: Postoperative bandage in place on the right lower extremity, no soakage, no bleeding , no sign of infection. Right shoulder: moderate pain with ROM , ROM limited due to pain Neurological:Normal cognition and motor skills. Gait not assessed due to obvious reasons Pulses:Carotid and radial pulses normal +2. Rest of the physical exam is non contributory. - Patient Status Disposition: Transfer SNF Condition: Fair Functional capacity at discharge: wheelchair bound Overall status at discharge: patient is not back to baseline - Discharge Instructions Follow Up With: Shan Tyler DO [Primary Care Provider] - <Jayne Platt - Last Filed: 11/16/18 15:03> Date of Encounter: 11/16/18 - Discharge Diagnosis (1) Fracture of femoral neck, right Status: Acute Qualifiers: Encounter type: initial encounter Fracture type: closed Qualified Code(s): S72.001A - Fracture of unspecified part of neck of right femur, initial encounter for closed fracture (2) Fracture of sacrum Status: Acute Qualifiers: Encounter type: initial encounter Zone of sacrum fracture: unspecified portion of sacrum Fracture type: closed Qualified Code(s): S32.10XA - Unspecified fracture of sacrum, initial encounter for closed fracture (3) Fall Status: Acute Qualifiers: Encounter type: initial encounter Qualified Code(s): W19.XXXA - Unspecified fall, initial encounter (4) Chronic kidney disease Status: Chronic Qualifiers: Chronic kidney disease stage: unspecified stage Qualified Code(s): N18.9 - Chronic kidney disease, unspecified (5) Hypertension Status: Chronic Qualifiers: Hypertension type: unspecified Qualified Code(s): I10 - Essential (primary) hypertension (6) Atrial fibrillation Status: Chronic Qualifiers: Atrial fibrillation type: chronic Qualified Code(s): I48.2 - Chronic atrial fibrillation Hospital course: Ms. De Souza is a 88 year old female - Time Spent with Patient Total time spent providing and/or coordinating discharge services: Date of admission: 11/13/18 14:32 Primary care physician: Shan Tyler DO Consults: 11/12/18 21:25 Consult to Social Worker Delinquency Prevention [CONS] Routine Reason for SW Consult: fall with possible SNF placement. 11/13/18 16:03 Consult to Occupational Therapy [CONS] Routine Comment: Evaluate, develop and implement POC Reason for Consult: post hip surgery Does patient have active BEDREST order?: No Is patient medically & hemodynamically stable?: Yes Patient assessed for mobility or mobilized this visit?: No Consult to Orthopedic Navigator [CONS] [CONS] Routine Consult to Physical Therapy [CONS] Routine Comment: Evaluate, develop and implement POC Reason for Consult: post hip surgery Does patient have active BEDREST order?: No Is patient medically & hemodynamically stable?: Yes Patient assessed for mobility or mobilized this visit?: No Consult to Social Worker Delinquency Prevention [CONS] Routine Reason for SW Consult: post -op hip fracture RT Post Op Consult [CONS] Routine - Constitutional Vitals: Temp Pulse Resp BP Pulse Ox 98.3 F 67 15 143/78 94 11/16/18 10:55 11/16/18 10:55 11/16/18 10:55 11/16/18 10:55 11/16/18 10:55 - Attending Attestation I have performed a face- to face examination of this patient and participated in formulation of lowe components of Assessment and plan with the Resident. Briefly this is an 88-year-old female who underwent a right hip pinning surgery after sustaining a fracture of neck fever on that side with an accident or fall. She is now postop and has been cleared by orthopedic surgery for weight clearance and physical therapy. She also has been found to have rotator cuff injury on the right shoulder and needs to undergo physical therapy, local warmth and prn NSAIDs for that. She is medically cleared and will be discharged today. Rest of the assessment and plan is as per resident documentation On examination postoperative changes are seen on the right hip. Total time spent in arranging for discharge disposition is 45 minutes
[2018-11-16] MEDS: Cholecalciferol (D-3) 1,000 UNIT TABLET PO SCH (08:05)
[2018-11-16] MEDS: Metoprolol XL (24 HR) Succ 25 MG TAB.ER.24H PO SCH (08:05)
[2018-11-16] MEDS: Aspirin 81 MG TAB.CHEW PO SCH (08:05)
--- NOTE | 2018-11-16 10:39 | Physician Discharge Referral ---
ExtendedCare Referral Info Provider in Charge after Transfer: PCP Institutional Level of Care: Skilled (*Will follow up with Kelsi Olguin PA-C in [facility] office in 2 weeks. *We have given ibuprofen 400 MGx 6hrly by mouth after food for her right shoulder pain & physical therapy has been advised) - Diagnosis (1) Fractured femoral neck Priority: Primary Status: Acute (2) Hypertension Priority: Secondary Status: Chronic (3) Afib Priority: Secondary Status: Chronic (4) CKD (chronic kidney disease) stage 3, GFR 30-59 ml/min Priority: Secondary Status: Chronic Prognosis: Fair - Transfer Medications Prescriptions: Ibuprofen [Motrin] 400 mg PO Q6HR #15 tablet Home Medications: Aspirin 81 mg PO DAILY 09/22/15 [History] Dronendrone [Multaq] 400 mg PO BID 09/22/15 [History] Simvastatin [Zocor] 10 mg PO DAILY 09/22/15 [History] Cholecalciferol (D-3) [Vitamin D] 1,000 unit PO DAILY 10/23/17 [History] Metoprolol XL (24 HR) Succ [Toprol Xl] 25 mg PO DAILY #30 tab.er.24h 10/25/17 [Rx] Acetaminophen [Tylenol] 650 mg PO Q4HR PRN tablet 11/16/18 [Rx] Calcium Carbonate [Tums] 1,000 mg PO TID tab.chew 11/16/18 [Rx] Docusate [Colace] 100 mg PO BID capsule 11/16/18 [Rx] Ibuprofen [Motrin] 400 mg PO Q6HR #15 tablet 11/16/18 [Rx] Allergies/Adverse Reactions: Allergy/AdvReac Type Severity Reaction Status Date / Time chlorpheniramine Allergy Hives Verified 06/14/16 13:20 diphenhydramine AdvReac Itching Verified 10/31/18 15:58 - Respiratory Orders Smoking Cessation: Smoking cessation has been advised. For more information, call the [place] Tobacco Quit Line at 7-593-LCRJ-NOW. - Diet Orders Cardiac (Cardiac diet and dietary supplementation.) CERTIFICATION: I certify that the transfer of the above named patient to an Extended Care Facility is necessary for the continuing treatment of the diagnosis listed. The above information is true and accurate reflection of patient's current condition. Confidential - Redisclosure prohibited without a patient's written consent.
[2018-11-16 11:46] LABS: Basophils % 0.7 %; Eosinophils # 0.2 K/mcL (0.0-0.6); Hemoglobin 11.2 g/dL (11.5-15.4); Immature Granulocytes % 0.6 % (0-4); Lymphocytes # 1.3 K/mcL (0.6-4.6); Lymphocytes % 24.4 %; Mean Corpuscular HGB Conc 33.9 g/dL (31.6-35.5); Mean Corpuscular Hemoglobin 32.8 pg (28.0-33.3); Mean Corpuscular Volume 96.8 fL (83.0-100.0); Mean Platelet Volume 9.3 fL (9.4-12.4); Monocytes # 0.7 K/mcL (0.0-1.3); Monocytes % 12.9 %; Neutrophils # 3.2 K/mcL (1.6-8.9); Platelet Count 156 K/mcL (140-400); Red Blood Count 3.41 M/mcL (3.82-4.97); Red Cell Distribution Width 13.2 % (11.5-14.5); Segmented Neutrophils % 58.4 %
[2018-11-16 15:06] VITALS: BP 129/70
[2018-11-16] MEDS: *HR* OxyCODONE Immed Rel 5 MG TABLET PO PRN (16:03)
== END 2018-11-16 16:17 | DRG 956 ==
LOC: 3NENU → SUATTDRO 20:13
PROVIDERS: ADMIT Internal Medicine; ATTEND Internal Medicine